=== PATIENT | female | born 1975 | race Caucasian/White ===

== ENCOUNTER 2016-12-26 11:37 | Emergency (ER) | payer BC ==
[2016-12-26 12:06] VITALS: BP 115/66
--- NOTE | 2016-12-26 12:15 | EDM.PDOC ---
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 Pt is 12 weeks . [facility] 09/16/2016 Due date 2016. No vag discharge. Pt is not sexually active. No trauma. No F/C no N/V/D or any other acute medical issues. Symptom Onset Date: 12/24/16 Symptom Onset Time: 08:00 Timing/Duration: Reports: Day(s): Location, : Reports: pelvic Quality: Reports: throbbing, dull Severity: mild Improves with: Reports: None Worsens with: Reports: None - Related Data Allergies/ADRs: Allergies Allergy/AdvReac Type Severity Reaction Status Date / Time cat dander Allergy Hives Verified 12/26/16 12:03 nickel Allergy Rash Verified 12/26/16 12:03 Home Meds: Home Meds PNV95/Ferrous Fumarate/FA [ Tablet] 1 each PO DAILY 12/01/15 [History] Sennosides/Docusate Sodium [Stool Softener] 1 tab PO Q48H PRN 12/01/15 [History] Mg Trisilicate/AlH/NahCO3/AA [Gaviscon 80-14.2 MG] 80 mg PO PCBREAKFAST [History] Fluconazole [Diflucan] 150 mg PO ONETIME #1 tab 12/26/16 [Rx] Past Medical History - Past Health History Medical/Surgical History: Denies Medical/Surgical History 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: Reports: Other OB/BYN History: had complications with 1st had last february 2016 - Infectious Disease History Infectious Disease History: Reports: Chicken pox - Past Surgical History Female Surgical History: Reports: section Social & Family History - Family History Family Medical History: Noncontributory Endocrine/Metabolic: Reports: Diabetes, type II Other Endocrine/Metabolic Family History: grandfather - Tobacco Use Smoking Status *Q: Never Smoker Years of Tobacco use: 20 Second Hand Smoke Exposure: No - Caffeine Use Caffeine Use: Reports: Soda - Recreational Drug Use Recreational Drug Use: No ED ROS GENERAL - Review of Systems Review Of Systems: See Below Constitutional: Reports: no symptoms HEENT: Reports: No symptoms Respiratory: Reports: No Symptoms Cardiovascular: Reports: No symptoms Endocrine: Reports: no symptoms GI/Abdominal: Reports: Abdominal pain : Reports: no symptoms Musculoskeletal: Reports: no symptoms Skin: Reports: no symptoms Neurological: Reports: No Symptoms Hematologic/Lymphatic: Reports: no symptoms Immunologic: Reports: no symptoms ED EXAM - Physical Exam Exam: See Below Exam Limited By: No limitations General Appearance: alert Eye Exam: bilateral eye: normal inspection Ears: normal external exam Nose: normal inspection, normal mucosa Throat/Mouth: Normal inspection, Normal lips, Normal teeth, Normal gums Head: atraumatic, normocephalic Neck: normal inspection, supple, non-tender, full range of motion Respiratory/Chest: no respiratory distress, lungs clear, normal breath sounds Cardiovascular: normal peripheral pulses, regular rate, rhythm, no edema, no gallop GI/Abdominal: normal bowel sounds, soft, non tender Rectal Exam: Deferred (Female) Exam: Normal bimanual exam, Normal external exam, Normal speculum exam heart tones: present heart tones per min: 163 movement: active Back Exam: normal inspection, full range of motion Extremities: normal inspection, normal range of motion Neurological: alert, oriented, CN II-XII intact, normal cognition, normal gait Psychiatric: normal affect, normal mood Skin Exam: Warm, Dry, Intact, Normal color, No rash Lymphatic: no adenopathy Course - Vital Signs Text/Narrative:: 41 years old w f [id number], came to the ed due to abd cramping since last . Pt is 12 weeks . [facility] 09/16/2016 Due date 2016. No vag discharge. Pt is not sexually active. No trauma. No F/C no N/V/D or any other acute medical issues. PE: WNWD w F Nl Pelvic exam Impression: 1 2 weeks FHT 163 Consultation: Dr. Roberson, OG/GERIATRIC NURSE PRACTITIONER: No US indicated, gine one dose of diflucan Tx: Pt refused diflucan Plan: D/C with intructions Last Recorded V/S: Last Vital Signs Temp 36.5 C 12/26/16 11:55 Pulse 76 12/26/16 11:55 Resp 14 04/08/17 11:55 BP 115/66 12/26/16 11:55 Pulse Ox 100 12/26/16 11:55 - Orders/Labs/Meds Orders: Active Orders 24 hr Category Date Time Status CHLAMYDIA,AND GC BY APTIMA Stat Lab 12/26/16 13:00 Received Labs: Laboratory Tests 12/26/16 Range/Units 12:16 Urine Color Yellow (YELLOW) Urine Appearance Slightly cloudy (CLEAR) Urine pH 6.0 (5.0-6.5) Ur Specific [place] 1.010 (1.010-1.025) Urine Protein Negative (NEGATIVE) mg/dL Urine Glucose (UA) Normal (NEGATIVE) mg/dL Urine Ketones Negative (NEGATIVE) mg/dL Urine Occult Blood Negative (NEGATIVE) Urine Nitrite Negative (NEGATIVE) Urine Bilirubin Negative (NEGATIVE) Urine Urobilinogen Normal (NEGATIVE) mg/dL Ur Leukocyte Esterase Negative (NEGATIVE) Urine WBC 0-5 (0) Ur Squamous Epith Cells Few H (NS,R,O) Urine Bacteria Few H (NS) Urine Yeast Few H (NS) Departure - Departure Time of Disposition: 14:10 Disposition: Home, Self-Care 01 Condition: good Clinical Impression: Abdominal cramping Prescriptions: Fluconazole [Diflucan] 150 mg PO ONETIME #1 tab Referrals: Susu Pickett MD [Primary Care Provider] - Forms: ED Department Discharge Additional Instructions: Please take deflucan 150mg X 1 po, please increase water intake, please follow up, please come back if symptoms get worse acutely. - My Orders Last 24 Hours: My Active Orders 12/26/16 13:00 CHLAMYDIA,AND GC BY APTIMA Stat - Assessment/Plan Last 24 Hours: My Active Orders 12/26/16 13:00 CHLAMYDIA,AND GC BY APTIMA Stat
== END 2016-12-26 14:24 | disposition home or self-care (01) ==
LOC: FB.ED 11:37
DX: O09.521 Supervision of elderly multigravida, first trimester (principal); O99.89 Other specified diseases and conditions complicating pregnancy, childbirth and the puerperium; R10.9 Unspecified abdominal pain; Z91.09 Other allergy status, other than to drugs and biological substances; Z79.899 Other long term (current) drug therapy; Z3A.12 12 weeks gestation of pregnancy
CPT/HCPCS: 81001; 87210; 87491; 87591; 99284